=== PATIENT | male | born 1985 | race Caucasian/White ===

== ENCOUNTER 2017-03-04 17:00 | Inpatient (IN) | payer MEDICAID ==
[2017-03-04] MEDS ORDERED: NS 1,000 ML IV ONE ×4 (17:15→18:48)
[2017-03-04] MEDS ORDERED: LORazepam 2 MG/ML INJ IVP ONE (17:15)
--- NOTE | 2017-03-04 17:19 | EDPHY ---
H & P Smoking Status: Light smoker <Wilma Cisneros - Last Filed: 03/04/17 21:38> <Andres Castro - Last Filed: 03/07/17 21:08> Time Seen by Provider: 03/04/17 17:12 HPI/ROS: CHIEF COMPLAINT: Seizure, snorted OxyContin HISTORY OF PRESENT ILLNESS: 31-year-old male presents to the emergency department by ambulance after having first-time witnessed seizure by his girlfriend. The patient admits to snorting oxycodone tablets today. He apparently has been doing this weekly for the last 2 years. His girlfriend witnessed tonic-clonic seizure. He was apparently postictal. He did not bite his tongue. He was not incontinent of urine. Unknown trauma. Currently the patient has a mild headache and is complaining of neck pain. He denies chest pain or difficulty breathing. Denies abdominal pain. Denies injury to upper or lower extremities. REVIEW OF SYSTEMS: Constitutional: No fever, no chills. Eyes: No double or blurry vision. ENT: No sore throat. Respiratory: No cough, no shortness of breath. Cardiac: No chest pain. Gastrointestinal: No abdominal pain, vomiting or diarrhea. Genitourinary: No dysuria. Musculoskeletal: Neck pain as above. No back pain. Skin: No rashes. Neurological: headache. (Wilma Cisneros) Past Medical/Surgical History: substance abuse (Wilma Cisneros) Social History: Single (Wilma Cisneros) Physical Exam: General Appearance: Alert, no distress. 94% on room air. No physical signs of trauma to his head. He is mentating normally and answering questions appropriately. Eyes: Pupils equal and round. Extraocular motions are all intact. ENT: Mouth: Mucous membranes moist. Blue residue noted in the left nostril. No dental injury or malocclusion. No tongue laceration or abrasion. Respiratory: No wheezing, rhonchi, or rales, lungs are clear to auscultation. Cardiovascular: Regular rate and rhythm. Gastrointestinal: Abdomen is soft and nontender, no masses, no rebound or guarding, bowel sounds normal. Neurological: Alert and oriented x 3, cranial nerves II through XII grossly intact Skin: Warm and dry, no rashes. Musculoskeletal: Nontender to palpate along the cervical, thoracic or lumbar spine. Neck is supple. Extremities: Full range of motion and no peripheral edema. Psychiatric: Patient is oriented X 3, there is no agitation. (Wilma Cisneros) Constitutional: Initial Vital Signs O2 Sat (%) 94 03/04/17 17:15 O2 Delivery Mode Nasal Cannula O2 (L/minute) 4 Allergies/Adverse Reactions: No Known Allergies Allergy (Verified 03/04/17 17:12) Home Medications: Medication Instructions Recorded Lisinopril [Zestril 2.5 mg (*)] 2.5 mg PO DAILY #30 tab 03/06/17 Medical Decision Making - Diagnostics Imaging: Discussed imaging studies w/ manager call center Radiologist <Wilma Cisneros - Last Filed: 03/04/17 21:38> - Diagnostics Imaging: I viewed and interpreted images myself <Andres Castro - Last Filed: 03/07/17 21:08> - Diagnostics Imaging Results: Imaging Impressions Cervical Spine CT 03/04/17 17:15 Impression: Kyphosis; no fracture. I telephoned results to Wilma Cisneros at [address] 03/04/17 17:15 Impression: Normal. I telephoned results to Wilma Cisneros at 1745 hours. Chest X-Ray 03/04/17 17:49 Impression: Normal. Chest x-ray was reviewed by myself and revealed no acute pulmonary disease. Specifically no evidence of aspiration or pneumomediastinum. (Wilma Cisneros) ED Course/Re-evaluation: 31-year-old male presents to the emergency department by ambulance after having a witnessed seizure. The patient was found to be hypotensive with initial blood pressure 70s over 50s. The patient was tachycardic with a heart rate of 110. He had an IV placed by EMS. The patient received a total of 3 L of IV normal saline. I spoke with Dr. Andres Castro regarding the patient's critical hypotension. Patient had no complaints of chest pain or difficulty breathing. He was complaining of some mild neck pain after his seizure. The patient was placed in a cervical collar and CT imaging of the head and cervical spine was ordered which was normal. Laboratory studies reveal elevated troponin of 0.221. Potassium was 5.4. His initial creatinine was 1.6 before IV fluids were infused. Elevated LFTs. Case was initially discussed with Dr. Sebastian Wells who is on-call for Cardiology. He agreed with stat echocardiogram. Repeat troponin reveals 0.296. EKG was unchanged. Patient had abnormal echocardiogram. He will be taken to the clinical lab assistant by Dr. Sebastian Machuca. Dr. Sebastian Machuca will see the patient in the emergency department. Critical care by Dr. Andres Castro. (Wilma Cisneros) 1836: I have seen evaluated this patient. Patient is hypotensive however map 50. Patient getting his 3rd L fluid. On his EKG his initial EKG showed an early Re pole pattern. There is ST elevation seen in lead to 3 AVF that looks like a Re-pole. We did repeat this EKG. EKG interpretation by me on record in [facility] system. Impression time of EKG 1834, sinus tachycardia rate of 100, again ST elevated noted early Re pole pattern to 3 AVF 1837: The patient at this time does not have any chest pain and does not have any pain in his chest or shortness of breath. He did have a seizure main complaint is headache and neck pain. Given his abnormal EKG and elevated troponin noted I will touch base with Cardiology again. I have ordered a stat echo. 1841: Spoke with Dr. Wells does not feel this is acute ST elevation. The patient has no chest pain or shortness of breath. He would like a stat echo. He will be glad to see the patient. 1850: I did perform a bedside ultrasound of this patient IV specifically looked at his cardiac window his heart motion appears normal. I do not appreciate any significant wall motion abnormality. It is not hyperdynamic. Formal echo pending. No pericardial effusion. No evidence of free fluid in the abdomen. Patient on his 4th L fluid. He did urinate 600 cc of brown concentrated urine. Clinically on exam patient appears volume depleted. 1914: EKGs txt to Dr. Wells, EKG is reviewed. He does feel this is early Repole. Stat echo pending. 1934: Patient's blood pressure currently 80/60. Map of 60. No chest pain. Stat echo is being performed at this time. 1999: Reported to me that the echocardiogram does show multiple wall motion abnormalities. I spoke with Dr. Machuca with Cardiology at this time. The review the echo. Call me back 2017: EKG interpretation by me on record in [facility] system. Impression this is a right-sided EKG again this patient is not having chest pain, this does show ST eleva tion to 3 AVF, abnormal T-wave abnormality in V1 V2 V3 with ST depression. 2024: Spoke with Dr. Machuca: Will plan to Cath Right and Left heart cath. Plan is to proceed with cardiac catheterization. Patient be admitted ICU. Dr. Machuca is requesting hospitalist admit due to multiple other issues including blood work abnormalities and drug overdose. But will proceed with catheterization of right and left heart to help understand why the right ventricle is damaged. This is most likely cause of hypotension given that the right ventricle is down. May need to proceed with CT angiogram chest with contrast rule out a pulmonary artery process after catheterization. I have updated the hospitalist service Dr. Machuca is on his way to the hospital to proceed with cardiac catheterization. Critical Care: Total Critical Care Time Spent Managing this Patient: 65 Minutes. This time was spent Exclusively with this patient. This Care was exclusive of procedures. The Organ System/life at risk was hypotension, ST elevation on EKG, drug overdose, acute kidney injury, hypokalemia. This Patient was in Critical Condition because hypotension, abnormal echo. Positive troponin. 2038: Dr. Machuca cardiology is at bedside. Evaluating patient plan for patient go to clinical lab assistant. I have cleared his cervical spine collar. (Andres Castro) Differential Diagnosis: Seizure including but not limited to electrolyte abnormality, alcohol withdrawal , medication noncompliance, head injury, and breakthrough seizure. (Wilma Cisneros) - Data Points Laboratory Results: Laboratory Results 03/04/17 17:30 03/04/17 18:25 Medications Given: Discontinued Medications Enoxaparin Sodium (Lovenox) 40 mg SC DAILY [facility] Stop: 09/01/17 08:59 Last Admin: 03/06/17 08:13 Dose: 40 mg Sodium Chloride (Ns) 1,000 mls @ 0 mls/hr IV ONCE ONE PRN Reason: Wide Open Stop: 03/04/17 17:16 Last Admin: 03/04/17 17:05 Dose: 1,000 mls Sodium Chloride (Ns) 1,000 mls @ 3,000 mls/hr IV ONCE ONE Stop: 03/04/17 17:59 Last Admin: 03/04/17 17:25 Dose: 1,000 mls Sodium Chloride (Ns) 1,000 mls @ 0 mls/hr IV ONCE ONE PRN Reason: Wide Open Stop: 03/04/17 18:31 Last Admin: 03/04/17 18:00 Dose: 1,000 mls Sodium Chloride (Ns) 1,000 mls @ 0 mls/hr IV ONCE ONE PRN Reason: Wide Open Stop: 03/04/17 18:49 Last Admin: 03/04/17 18:40 Dose: 1,000 mls Norepinephrine/Sodium Chloride (Norepinephrine 8 Mcg/Ml (Premix)) 500 mls @ 0 mls/hr IV CONT CHETNA; Per Protocol PRN Reason: Protocol Stop: 08/31/17 22:59 Last Admin: 03/04/17 23:58 Dose: 500 mls Pantoprazole Sodium 40 mg/ (Sodium Chloride) 100 mls @ 200 mls/hr IV DAILY CHETNA Stop: 08/31/17 23:14 Last Admin: 03/05/17 08:05 Dose: 100 mls Lisinopril (Zestril) 2.5 mg PO DAILY CHETNA Stop: 09/02/17 08:59 Last Admin: 03/06/17 08:14 Dose: 2.5 mg Lorazepam (Ativan Injection) 1 mg IVP EDNOW ONE Stop: 03/04/17 17:16 Last Admin: 03/04/17 18:36 Dose: Not Given Lorazepam (Ativan Injection) 0.5 - 1 mg IVP Q4HRS PRN PRN Reason: Anxiety, Unable to Take PO Stop: 08/31/17 23:10 Last Admin: 03/04/17 23:56 Dose: 1 mg Morphine Sulfate (Morphine) 2 mg IVP Q4HRS PRN PRN Reason: Pain, Severe Unable to Take PO Stop: 03/14/17 23:09 Last Admin: 03/05/17 12:26 Dose: 2 mg Nicotine (Nicoderm Cq) 14 mg TD DAILY CHETNA Stop: 08/31/17 23:14 Last Admin: 03/06/17 08:12 Dose: 14 mg Ondansetron HCl (Zofran) 4 mg IVP Q4HRS PRN PRN Reason: Nausea/Vomiting, Can't Take PO Stop: 08/31/17 23:09 Last Admin: 03/04/17 23:15 Dose: 4 mg Departure <Wilma Cisneros - Last Filed: 03/04/17 21:38> <Andres Castro - Last Filed: 03/07/17 21:08> - Departure Disposition: To OP Cath/Surgery Clinical Impression: Acute kidney injury, Seizure, Shock Drug overdose Qualifiers: Encounter type: initial encounter Injury intent: undetermined intent Qualified Code(s): T50.904A - Poisoning by unspecified drugs, medicaments and biological substances, undetermined, initial encounter Hypotension Qualifiers: Hypotension type: unspecified hypotension type Qualified Code(s): I95.9 - Hypotension, unspecified Condition: Critical
--- NOTE | 2017-03-04 17:39 | CPEKG ---
Heart Rate: 97 RR Interval: 619 P-R Interval: 132 QRSD Interval: 94 QT Interval: 368 QTC Interval: 468 P [place]: 70 QRS [place]: 90 T Wave [place]: 63 EKG Severity - OTHERWISE NORMAL ECG - EKG Impression: SINUS RHYTHM EKG Impression: BORDERLINE RIGHT AXIS DEVIATION EKG Impression: ST ELEV, PROBABLE NORMAL EARLY REPOL PATTERN Electronically Signed By: Andres Castro 04-Mar-2017 21:34:07
[2017-03-04 17:50] LABS: % IMMATURE GRANULYOCYTES 0.5 % (0.0-1.1); ABSOLUTE IMMATURE GRANULOCYTES 0.13 10^3/uL (0.00-0.10); ADD DIFF? NO; ADD MORPH? NO; ADD SCAN? NO; ATYPICAL LYMPHOCYTE FLAG 0 (0-99); FRAGMENT RBC FLAG 0 (0-99); HEMATOCRIT 53.8 % (40.0-51.0); HEMOGLOBIN 17.4 g/dL (13.7-17.5); LEFT SHIFT FLG 40 (0-99); LIPEMIA HEMOLYSIS FLAG 80 (0-99); MEAN CELL HEMOGLOBIN CONCENTR. 32.3 g/dL (32.4-36.7); MEAN CELL VOLUME 99.1 fL (81.5-99.8); MEAN PLATELET VOLUME 9.4 fL (8.7-11.7); PLATELET CLUMPS FLAG 0 (0-99); PLATELET COUNT 285 10^3/uL (150-400); RED BLOOD CELL COUNT 5.43 10^6/uL (4.40-6.38); RED CELL DISTRIBUTION WIDTH 12.2 % (11.5-15.2)
[2017-03-04 18:04] LABS: ALANINE AMINOTRANSFERASE 505 IU/L (21-72); ALBUMIN 5.3 g/dL (3.5-5.0); ALKALINE PHOSPHATASE 81 IU/L (38-126); ANION GAP 26 mEq/L (8-16); ASPARTATE AMINOTRANSFERASE 724 IU/L (17-59); BILIRUBIN,TOTAL 1.1 mg/dL (0.1-1.4); BILIRUBIN-CONJUGATED 0.7 mg/dL (0.0-0.5); BILIRUBIN-UNCONJUGATED 0.4 mg/dL (0.0-1.1); CALCIUM 9.4 mg/dL (8.5-10.4); CARBON DIOXIDE 17 mEq/l (22-31); CHLORIDE 97 mEq/L (97-110); CREATININE 1.6 mg/dL (0.7-1.3); ETHANOL SERUM < 10 mg/dL (0-10); GLOMERULAR FILTRATION RATE 51; GLUCOSE 174 mg/dL (70-100); POTASSIUM 5.4 mEq/L (3.5-5.2); SALICYLATE < 1.0 mg/dL (2.0-20.0); SODIUM 140 mEq/L (134-144); TOTAL PROTEIN 8.2 g/dL (6.3-8.2)
[2017-03-04 18:15] LABS: TROPONIN I 0.221 ng/mL (0-0.034)
--- NOTE | 2017-03-04 18:37 | CPEKG ---
Heart Rate: 100 RR Interval: 600 P-R Interval: 128 QRSD Interval: 92 QT Interval: 360 QTC Interval: 465 P [place]: 70 QRS [place]: 93 T Wave [place]: 70 EKG Severity - OTHERWISE NORMAL ECG - EKG Impression: SINUS TACHYCARDIA EKG Impression: BORDERLINE RIGHT AXIS DEVIATION EKG Impression: ST ELEV, PROBABLE NORMAL EARLY REPOL PATTERN Electronically Signed By: Andres Castro 04-Mar-2017 21:34:07
[2017-03-04 18:58] LABS: ANION GAP 6 mEq/L (8-16); CALCIUM 7.2 mg/dL (8.5-10.4); CARBON DIOXIDE 23 mEq/l (22-31); CHLORIDE 107 mEq/L (97-110); CREATININE 1.1 mg/dL (0.7-1.3); GLOMERULAR FILTRATION RATE > 60; GLUCOSE 104 mg/dL (70-100); POTASSIUM 5.4 mEq/L (3.5-5.2); SODIUM 136 mEq/L (134-144)
[2017-03-04 19:08] LABS: TROPONIN I 0.296 ng/mL (0-0.034)
[2017-03-04 19:31] LABS: CK-MB INTERPRETATION NEGATIVE (NEGATIVE)
[2017-03-04 19:54] LABS: CREATINE KINASE-MB FRACTION 4.45 ng/mL (0-3.19)
[2017-03-04] MEDS ORDERED: LIDOCAINE 1% 30 ML SDV ONE (21:06)
[2017-03-04] MEDS ORDERED: IOPAMIDOL (ISOVUE-370) 150 ML BTL IV ONE (21:06)
[2017-03-04] MEDS ORDERED: fentaNYL 100 MCG/2 ML INJ ONE (21:08)
[2017-03-04] MEDS ORDERED: MIDAZOLAM 2 MG/2 ML VIAL ONE (21:09)
[2017-03-04] MEDS ORDERED: DOPamine/DEXTROSE/250 ML BAG IV ONE (21:45)
--- NOTE | 2017-03-04 22:59 | CPEKG ---
Heart Rate: 95 RR Interval: 632 P-R Interval: 132 QRSD Interval: 82 QT Interval: 336 QTC Interval: 423 P [place]: 67 QRS [place]: 93 T Wave [place]: 66 EKG Severity - ABNORMAL ECG - EKG Impression: SINUS RHYTHM EKG Impression: BORDERLINE RIGHT AXIS DEVIATION EKG Impression: NONSPECIFIC T ABNORMALITIES, ANT-LAT LEADS EKG Impression: ST ELEVATION SUGGESTS PERICARDITIS Electronically Signed By: Sue Mckeon 05-Mar-2017 11:52:43
[2017-03-04] MEDS ORDERED: NOREPINEPHRINE/NS 500 ML IV SCH (23:00)
[2017-03-04] MEDS ORDERED: NOREPINEPHRINE BITARTRATE 4 MG in D5W 500 ML IV SCH (23:00)
[2017-03-04] MEDS ORDERED: ONDANSETRON 4 MG/2 ML VIAL ONE (23:02)
[2017-03-04] MEDS ORDERED: IOPAMIDOL (ISOVUE 370) 100 ML BTL IV ONE (23:09)
[2017-03-04] MEDS ORDERED: ONDANSETRON 4 MG/2 ML VIAL IVP PRN (23:10)
[2017-03-04] MEDS ORDERED: LORazepam 2 MG/ML INJ IVP PRN (23:11)
--- NOTE | 2017-03-04 23:41 | GCON ---
[f rep st] CONSULTATION DATE OF CONSULTATION: 03/04/2017 CHIEF COMPLAINT: We have been asked by Dr. Castro to evaluate this patient with hypotension and el evated troponin and an abnormal echocardiogram with an EF of approximately 35% and segmental wall mo tion abnormalities. HISTORY OF PRESENT ILLNESS: The patient is a 31-year-old gentleman with no significant past medical history, who was admitted to the emergency department on 03/04/2017 with seizure-like activity. Brandon perez was in his usual state of health until the day of admission when he was snorting OxyContin wit h his girlfriend. After snorting the OxyContin, he became unconscious and had tonic-colonic seizure -like activity. EMS was activated, and patient was brought to the emergency department for further evaluation. Patient did not bite his tongue. He was not incontinent of stool or urine. In the located within [facility] department, he had an EKG performed, which demonstrated sinus rhythm and early repolarization abnormality. Initial lab work was notable for an elevated troponin, an elevated white blood cell c ount of 24.92, renal insufficiency with a creatinine 1.6, and elevated LFTs with an AST of 724 and a n ALT of 505. Initial toxicology screen was notable for marijuana but was otherwise unremarkable. Given patient was hypotensive, he was treated with intravenous fluid, and an echocardiogram was orde red. The echocardiogram demonstrated a dilated RV with reduced RV function. His LV was normal in s ize with reduced left ventricular systolic function. Estimated ejection fraction was 35%. The sept um was dyskinetic. The posterior wall appeared to be hypokinetic. Patient denies a previous histor y of coronary artery disease. He does report snorting oxycodone. He denies other illicit drug use other than marijuana. Patient denies symptoms of chest pain, palpitations, orthopnea, and PND. Jeane romo does report some neck discomfort after his seizure-like activity. PAST MEDICAL HISTORY: None. MEDICATIONS: None. ALLERGIES: No known drug allergies. SOCIAL HISTORY: Patient does report smoking marijuana and snorting oxycodone. FAMILY HISTORY: Noncontributory. REVIEW OF SYSTEMS: A 10-point review of systems is negative except as noted in HPI. PHYSICAL EXAMINATION: GENERAL: Patient is resting in bed. He does not appear to be in acute distr ess. VITAL SIGNS: Temperature is afebrile. Pulse is 94, blood pressure 82/61, respiratory rate 13 , SaO2 95% on 2 L nasal cannula. HEENT: Normocephalic, atraumatic. Extraocular muscles intact. N DORINDA: Positive JVD. No bruits. LUNGS: Clear to auscultation. CARDIOVASCULAR: Regular rate and r hythm. S1, S2. No murmurs, rubs, or gallops appreciated. ABDOMEN: Soft. Nontender. Normoactive bowel sounds. EXTREMITIES: No clubbing, cyanosis, or edema. NEURO: Patient is awake, alert, and oriented x3. SKIN: No evidence of rashes. LABORATORY DATA: White blood cell count 24.92, hemoglobin 17.4, hematocrit 53.8, platelet count 285 . Sodium 136, potassium 5.4, chloride 107, CO2 of 23, BUN 17, creatinine 1.1. AST is 724, ALT is 5 05. Initial troponin was 0.221. Second troponin 0.296. CPK is elevated at 258. EKG: Demonstrate s sinus rhythm, vertical axis, normal intervals. J-point elevation in the inferior and lateral lead s consistent with a repolarization abnormality. Echocardiogram: Preliminary report demonstrates re duced left ventricular systolic function with estimated ejection fraction 35%. Septal dyskinesis. Posterior hypokinesis. The right ventricle is dilated and hypokinetic. ASSESSMENT AND PLAN: The patient is a 31-year-old gentleman with: 1. Hypotension. Patient presents with hypotension that is minimally responsive to volume resuscita tion. He has an elevated white blood cell count raising concern for septic syndrome. He also has r educed left ventricular systolic function raising concern for cardiogenic shock. In addition, patie nt also has a dilated and hypokinetic right ventricle raising concern for pulmonary embolism. Toxic reaction is also possible. Reviewed risks and benefits of right heart catheterization to help diag nose and treat his hypotension. Will arrange to have this performed. 2. Cardiomyopathy. Patient presents with a new diagnosis of cardiomyopathy. He does admit to subs tance use/abuse, which certainly could be contributing to his cardiomyopathy. He denies cocaine use ; however, he does have multiple segmental wall motion abnormalities. Reviewed risks and benefits o f left heart catheterization to evaluate coronary anatomy and aid in his treatment. Will arrange to have this performed. /[id number]/MODL
--- NOTE | 2017-03-04 23:43 | PDGENHP ---
History and Physical - Chief Complaint possible seizure - History of Present Illness Patient is a 31 year old male with history of depression, active tobacco use who presents to the ED after seizure-like activity at home. Patient reports he had been snorting oxycodone with his girlfriend/roommate, denies any other drug mixed. His girlfriend then reports he became unresponsive and had a generalized tonic-clonic like movements of all his extremities, appearing consistent with a seizure. Once movements stopped, patient was lethargic and confused, so girlfriend called EMS and he was transported to the ED for further evaluation. On arrival to the ED, patient was afebrile, tachycardic and hypotensive. On exam , he was lethargic but answering questions appropriately, appearing post-ictal. Labs revealed leukocytosis, elevated troponin at 0.29, transaminitis and elevated creatinine. CXR and CT head were unremarkable. EKG showed possible ST elevations, so cardiology was consulted and a stat TTE was ordered. TTE revealed focal wall motion abnormalities, RV hypokinesis. Patient remained hypotensive despite 4L IVF resuscitation, so pressor support was initiated and he was then taken for cath. Cardiology performed R and L heart cath to further evaluate troponin elevation and TTE findings. Cardiac cath showed clean coronaries, global RV hypokinesis and elevated pcwp (15). Given these findings, CT angio chest was then obtained to assess for pulmonary embolism. CT angio was negative for PE, showed minimal fluid overload. On my evaluation, patient does not recall most events of the day. He states he was in his usual state of health prior to snorting the oxycodone, which is something he does fairly frequently (1x/week). Denies any recent illness, fever , chills, cough, congestion, chest pain, abdominal pain or recent long travel. He was nauseous and vomiting on my assessment and complaining of a headache and neck pain. He does report a history of depression, for which he was prescibed Wellbutrin, which was abruptly discontinued about 3 months ago. He denies self harm attempt today and also denies any previous history of seizure disorder. History Information - Allergies/Home Medication List Allergies/Adverse Reactions: No Known Allergies Allergy (Verified 03/04/17 17:12) Home Medications: NK [No Known Home Meds] 03/04/17 [Last Taken Unknown] I have personally reviewed and updated: family history, medical history, social history, surgical history - Past Medical History Additional medical history: h/o depression - Surgical History Additional surgical history: hand surgery - Family History Positive for: non-pertinent - Social History Smoking Status: Current every day smoker (1/2 PPD) Alcohol Use: Occasionally (1-2 beers daily) Drug Use: Marijuana, Other (oxycodone use) Additional social history: Patient lives with a roommate. Review of Systems ROS: 10pt was reviewed & negative except for what was stated in HPI & below Physical Exam Temp Pulse Resp BP Pulse Ox 37.1 C 96 14 83/65 L 95 03/04/17 17:23 03/04/17 21:18 03/04/17 21:18 03/04/17 21:18 03/04/17 21:18 O2 (L/minute) 2 Constitutional: no apparent distress, appears nourished, not in pain Eyes: PERRL, anicteric sclera, EOMI Ears, Nose, Mouth, Throat: moist mucous membranes, hearing normal, ears appear normal, no oral mucosal ulcers Cardiovascular: regular rate and rhythym, no murmur, rub, or gallop, pulses symmetric bilaterally, No JVD, No edema Peripheral Pulses: 2+: dorsalis-pedis (R), dorsalis-pedis (L) Respiratory: no respiratory distress, no rales or rhonchi, clear to auscultation Gastrointestinal: normoactive bowel sounds, soft, non-tender abdomen, no palpable masses, No tenderness, No guarding, No rebound Genitourinary: no bladder fullness, no bladder tenderness Skin: warm, normal color, no rashes or abrasions, no fluctuance, no induration, No mottled Musculoskeletal: full muscle strength, no muscle tenderness, normal joint ROM, no joint effusions Neurologic: AAOx3, sensation intact bilaterally, CN II-XII Intact, No weakness, No numbness, No facial droop Psychiatric: interacting appropriately, not anxious, not encephalopathic, thought process linear Lab Data & Imaging Review 03/05/17 05:15 03/05/17 05:15 WBC 24.92 10^3/uL (3.80-9.50) H 03/04/17 17:30 RBC 5.43 10^6/uL (4.40-6.38) 03/04/17 17:30 Hgb 17.4 g/dL (13.7-17.5) 03/04/17 17:30 Hct 53.8 % (40.0-51.0) H 03/04/17 17:30 MCV 99.1 fL (81.5-99.8) 03/04/17 17:30 MCH 32.0 pg (27.9-34.1) 03/04/17 17:30 MCHC 32.3 g/dL (32.4-36.7) L 03/04/17 17:30 RDW 12.2 % (11.5-15.2) 03/04/17 17:30 Plt Count 285 10^3/uL (150-400) 03/04/17 17:30 MPV 9.4 fL (8.7-11.7) 03/04/17 17:30 Neut % (Auto) 89.7 % (39.3-74.2) H 03/04/17 17:30 Lymph % (Auto) 3.8 % (15.0-45.0) L 03/04/17 17:30 Greene % (Auto) 5.8 % (4.5-13.0) 03/04/17 17:30 Eos % (Auto) 0.0 % (0.6-7.6) L 03/04/17 17:30 Baso % (Auto) 0.2 % (0.3-1.7) L 03/04/17 17:30 Nucleat RBC Rel Count 0.0 % (0.0-0.2) 03/04/17 17:30 Absolute Neuts (auto) 22.35 10^3/uL (1.70-6.50) H 03/04/17 17:30 Absolute Lymphs (auto) 0.95 10^3/uL (1.00-3.00) L 03/04/17 17:30 Absolute Monos (auto) 1.44 10^3/uL (0.30-0.80) H 03/04/17 17:30 Absolute Eos (auto) 0.00 10^3/uL (0.03-0.40) L 03/04/17 17:30 Absolute Basos (auto) 0.05 10^3/uL (0.02-0.10) 03/04/17 17:30 Absolute Nucleated RBC 0.00 10^3/uL (0-0.01) 03/04/17 17:30 Immature Gran % 0.5 % (0.0-1.1) 03/04/17 17:30 Immature Gran # 0.13 10^3/uL (0.00-0.10) H 03/04/17 17:30 Sodium 136 mEq/L (134-144) 03/04/17 18:25 Potassium 5.4 mEq/L (3.5-5.2) H 03/04/17 18:25 Chloride 107 mEq/L (97-110) D 03/04/17 18:25 Carbon Dioxide 23 mEq/l (22-31) D 03/04/17 18:25 Anion Gap 6 mEq/L (8-16) L 03/04/17 18:25 BUN 17 mg/dL (7-23) 03/04/17 18:25 Creatinine 1.1 mg/dL (0.7-1.3) 03/04/17 18:25 Estimated GFR > 60 03/04/17 18:25 Glucose 104 mg/dL (70-100) H 03/04/17 18:25 Calcium 7.2 mg/dL (8.5-10.4) L D 03/04/17 18:25 Total Bilirubin 1.1 mg/dL (0.1-1.4) 03/04/17 17:02 Conjugated Bilirubin 0.7 mg/dL (0.0-0.5) H 03/04/17 17:02 Unconjugated Bilirubin 0.4 mg/dL (0.0-1.1) 03/04/17 17:02 AST 724 IU/L (17-59) H 03/04/17 17:02 ALT 505 IU/L (21-72) H 03/04/17 17:02 Alkaline Phosphatase 81 IU/L (38-126) 03/04/17 17:02 Creatine Kinase 258 IU/L (0-224) H 03/04/17 17:00 CK-MB (CK-2) Fraction 4.45 ng/mL (0-3.19) H 03/04/17 17:00 CK-MB (CK-2) % 1.7 % (0.0-4.0) 03/04/17 17:00 Creatine Kinase Interp NEGATIVE (NEGATIVE) 03/04/17 17:00 Troponin I 0.296 ng/mL (0-0.034) H 03/04/17 18:25 Total Protein 8.2 g/dL (6.3-8.2) 03/04/17 17:02 Albumin 5.3 g/dL (3.5-5.0) H 03/04/17 17:02 Salicylates < 1.0 mg/dL (2.0-20.0) L 03/04/17 17:02 Urine Opiates Screen NEGATIVE (NEGATIVE) 03/04/17 18:44 Acetaminophen < 10 mcg/mL (10.0-30.0) L 03/04/17 17:02 Urine Barbiturates NEGATIVE (NEGATIVE) 03/04/17 18:44 Ur Phencyclidine Scrn NEGATIVE (NEGATIVE) 03/04/17 18:44 Ur Amphetamine Screen NEGATIVE (NEGATIVE) 03/04/17 18:44 U Benzodiazepines Scrn NEGATIVE (NEGATIVE) 03/04/17 18:44 Urine Cocaine Screen NEGATIVE (NEGATIVE) 03/04/17 18:44 U Marijuana (THC) Screen NON-NEGATIVE (NEGATIVE) H 03/04/17 18:44 Ethyl Alcohol < 10 mg/dL (0-10) 03/04/17 17:02 Visualized and Interpreted Chest x-ray results: Yes Chest X-Ray results: no infiltrate Visualized and Interpreted imaging results: Yes Interpretation: CT head: no acute abnormalities. CT angio chest: no evidence of pulmonary embolism; minimal pleural effusions Visualized and Interpreted EKG results: Yes EKG additional interpertation: sinus tachycardia with ST elevations defusely, normal HI Assessment & Plan Assessment: Patient is a 31 year old male with no significant pmh who presents to the ED after snorting drugs (reportedly oxycodone only) resulting in an apparent seizure. ED evaluation reveals hypotension, elevated troponin, abnormal EKG and TTE, as well as leukocytosis, transaminitis, judah. Cardiology has performed L and R heart cath, which reveal normal coronaries, RV hypokinesis and evidence of cardiogenic shock. CT angio was also negative for acute pulmonary embolism. Plan: # shock Patient presented hypotensive and remained so after 4L of IV fluid resuscitation. RHC data (low CI, high pcwp) suggests cardiogenic etiology. However, given leukocytosis, will also rule out contributing sepsis/infection. BP has stabilized with minimal pressor support, will continue this to goal MAP > 65, UOP>0.5 cc/kg/hr. # elevated troponin, abnormal EKG, TTE Etiology may be related to drug toxicity (however, patient denies any cocaine/ amphetamine use) vs vasospasm vs viral priscilla/perimyocarditis. Repeat EKGs do show more diffuse ST elevations, appearing consistent with pericarditis, especially given clean cath. However, patient continues to deny any chest pain, dyspnea or pleurisy. Will hold off on NSAID therapy tonight given double contrast load and JUDAH on presenting labs. - cont to trend troponins - monitor serial EKGs - f/u cardiology recommendations - check viral panel for ? myocarditis # encephalopathy/? seizure Per report, patient had a generalized tonic-clonic seizure prior to arrival in the ED. On arrival to ED, patient was lethargic, appearing consistent with a post-ictal state. Etiology of seizure is not clear at this time, may be related to acute drug toxicity. Has history of wellbutrin use, however, states it last taken > 3 months ago. Also denies heavy alcohol use, reports 1-2 beers/daily, denies any history of etoh withdrawal symptoms. CT head is negative for acute pathology and exam is nonfocal. He is complaining of headache, can consider LP to rule out meningitis/encephalitis if signs of infection develop (persistent leukocytosis, fever, neck stiffness). Will also consult neurology. # leukocytosis Likely reactive, related to possible acute seizure. No obvious source of bacterial infection, given negative cxr, denies infectious symptoms. Will check UA, lactic acid, above listed viral panel and continue to trend. No indication to start antibiotics at this time. # transaminitis Etiology of this is not clear, may be related to hypotension (early shock liver ) vs chronic alcohol use vs drug toxicity. Patient denies any IVDA, acetaminophen level is negative, lipase wnl. Will check acute hepatitis panel, abdominal US and trend. # judah Cr initially 1.6, improved significantly with IVF hydration. Suspect pre-renal etiology as patient apparently appeared dry on presentation. He is now s/p 4L IVF. Will hold additional fluids given cardiomyopathy and continue to monitor BMP, electrolytes. # active tobacco use Advised on cessation, offered nicotine replacement therapy while inpatient. # history of depression Patient denies any suicidal/homicidal ideations today. He also denies that oxycodone overdose was intentional. He was previously on wellbutrin and states this was discontinued about 3 months ago. He is not currently on any antidepressants and states his mood is stable. # dispo: admit to ICU for likely > 2 MN stay given multiple active comorbidities described above # gen: regular diet DVT ppx: lovenox Full code
--- NOTE | 2017-03-04 23:50 | CPEKG ---
Heart Rate: 95 RR Interval: 632 P-R Interval: 132 QRSD Interval: 80 QT Interval: 348 QTC Interval: 438 P Soso: 87 QRS Soso: 98 T Wave Soso: 80 EKG Severity - ABNORMAL ECG - EKG Impression: SINUS RHYTHM EKG Impression: BORDERLINE RIGHT AXIS DEVIATION EKG Impression: ST ELEVATION SUGGESTS PERICARDITIS Electronically Signed By: Sue Mckeon 05-Mar-2017 11:52:48
[2017-03-05] MEDS: PANTOPRAZOLE SODIUM 40 MG in NS 100 ML IV SCH ×2 (00:11→08:05)
[2017-03-05] MEDS: NICOTINE 14 MG/24 HR PATCH TD SCH ×2 (00:15→08:05)
--- NOTE | 2017-03-05 00:21 | CPIP ---
[f rep st] INVASIVE CARDIAC PROCEDURE DATE OF PROCEDURE: 03/04/2017 PROCEDURE: 1. Coronary angiography. 2. Left ventricular end-diastolic pressure. 3. Right heart catheterization. INDICATION: 1. Elevated troponin. 2. Cardiomyopathy. 3. Hypotension. ACCESS: Patient was prepped and draped in sterile fashion. 1% lidocaine was used to anesthetize th e right inguinal region. A 6-[place] introducer sheath was placed selectively into the right common femoral artery via modified Seldinger technique. A 7-[place] introducer sheath was placed selectivel y into the right common femoral vein via modified Seldinger technique. CORONARY ANGIOGRAPHY: A 6-[place] JL4 was advanced to the left main coronary artery and images obtai manolo. The left main coronary artery was short and quickly bifurcated into an LAD and circumflex albaro nary arteries. The left main coronary artery appeared normal. The left anterior descending coronar y artery gave rise to 2 diagonal branches. The left anterior descending coronary artery and its com plement of diagonal branches appeared normal. The circumflex coronary artery gave rise to 1 OM bran ch. The OM branch was a large branching vessel. The circumflex coronary artery and its OM branch a ppeared normal. A 6-[place] JR4 was advanced to the right coronary artery, did not engage the right coronary artery well. It was exchanged for a 6-[place] no-torque right catheter. This engaged the r ight coronary artery well. The right coronary artery appeared normal. Left ventricular end-diastolic pressure. A 6-[place] pigtail catheter was advanced in the left ventr icle and pressure obtained. Left ventricular end-diastolic pressure was 18 mmHg. Right heart catheterization: Right heart catheter was advanced in the right atrium and pressure obt ained, the right atrial pressure was 17 mmHg. Catheter was then advanced in the right ventricle and pressure obtained. The right ventricular pressure was 30/11 mmHg. The catheter was then advanced in the pulmonary artery position and pressure obtained; the pulmonary artery pressure was 27/19 mmHg . Catheter was then advanced in the wedge position and pressure obtained. The pulmonary capillary wedge pressure was 16 mmHg. The cardiac output was 3.79, the cardiac index was 1.96. SVR was 970. COMPLICATIONS: None. CONCLUSIONS: 1. Normal coronary arteries. 2. Mildly reduced cardiac output with normal SVR. 3. Concern for right ventricular dysfunction resulting in low cardiac output. Consider CT pulmonar y angiogram. /[id number]/MODL
[2017-03-05 03:11] LABS: COLOR YELLOW; LEUKOCYTE ESTERASE,URINE NEGATIVE (NEGATIVE); NITRITE,URINE NEGATIVE (NEGATIVE)
[2017-03-05 03:48] LABS: PHENCYCLIDINE URINE BCH < 6 ng/ml (NEGATIVE); PHENCYCLIDINE URINE BCH NEGATIVE (NEGATIVE)
[2017-03-05 03:59] LABS: TETRAHYDROCANNABINOL URINE > 800 ng/mL (NEGATIVE)
[2017-03-05 05:31] LABS: % IMMATURE GRANULYOCYTES 0.3 % (0.0-1.1); ABSOLUTE IMMATURE GRANULOCYTES 0.04 10^3/uL (0.00-0.10); ADD DIFF? NO; ADD MORPH? NO; ADD SCAN? NO; ATYPICAL LYMPHOCYTE FLAG 10 (0-99); FRAGMENT RBC FLAG 0 (0-99); HEMATOCRIT 39.7 % (40.0-51.0); HEMOGLOBIN 13.4 g/dL (13.7-17.5); LEFT SHIFT FLG 0 (0-99); LIPEMIA HEMOLYSIS FLAG 90 (0-99); MEAN CELL HEMOGLOBIN 31.7 pg (27.9-34.1); MEAN CELL HEMOGLOBIN CONCENTR. 33.8 g/dL (32.4-36.7); MEAN CELL VOLUME 93.9 fL (81.5-99.8); MEAN PLATELET VOLUME 9.6 fL (8.7-11.7); PLATELET CLUMPS FLAG 20 (0-99); PLATELET COUNT 159 10^3/uL (150-400); RED BLOOD CELL COUNT 4.23 10^6/uL (4.40-6.38); RED CELL DISTRIBUTION WIDTH 12.2 % (11.5-15.2)
[2017-03-05 05:40] LABS: ALANINE AMINOTRANSFERASE 807 IU/L (21-72); ALBUMIN 2.8 g/dL (3.5-5.0); ALKALINE PHOSPHATASE 46 IU/L (38-126); ANION GAP 3 mEq/L (8-16); BILIRUBIN,TOTAL 0.7 mg/dL (0.1-1.4); CALCIUM 8.2 mg/dL (8.5-10.4); CARBON DIOXIDE 25 mEq/l (22-31); CHLORIDE 107 mEq/L (97-110); GLOMERULAR FILTRATION RATE > 60; GLUCOSE 81 mg/dL (70-100); INR 1.9 (0.83-1.16); POTASSIUM 4.6 mEq/L (3.5-5.2); PROTIME(PATIENT) 21.9 SEC (12.0-15.0); SODIUM 135 mEq/L (134-144); TOTAL PROTEIN 4.8 g/dL (6.3-8.2)
[2017-03-05 05:41] LABS: APTT 32.1 SEC (23.0-38.0)
[2017-03-05 05:48] LABS: ASPARTATE AMINOTRANSFERASE 1309 IU/L (17-59)
[2017-03-05 05:50] LABS: TROPONIN I 0.428 ng/mL (0-0.034)
[2017-03-05] MEDS: ENOXAPARIN 40 MG/0.4 ML SYR SC SCH (08:05)
--- NOTE | 2017-03-05 08:48 | CPEKG ---
Heart Rate: 71 RR Interval: 845 P-R Interval: 124 QRSD Interval: 84 QT Interval: 392 QTC Interval: 426 P [place]: 81 QRS [place]: 94 T Wave [place]: 79 EKG Severity - ABNORMAL ECG - EKG Impression: SINUS RHYTHM EKG Impression: BORDERLINE RIGHT AXIS DEVIATION EKG Impression: NONSPECIFIC T ABNORMALITIES, ANT-LAT LEADS Electronically Signed By: uSe Mckeon 05-Mar-2017 11:52:25
--- NOTE | 2017-03-05 11:10 | ECHO ---
[id number] + + [address] : : [place] [address] : : [phone] + + Adult Echocardiographic Report + -----+ :Name: Rolando CRUZ Date: 03/04/2017 07:48 PM : : Hospital Admission Number: [id number] [facility] n: ER: :: 1985 Gender: Male Height: 72 in : :Age: 31 yrs Race: WH Weight: 160 lb : :Reason For Study: Elevated troponin : : BSA: 1.9 meters 2 : + -----+ MMode/2D Measurements \T\ Calculations IVSd: 0.67 cm LVIDd: 4.7 cm FS: 14.6 % Ao root diam: 3.0 cm LVPWd: 0.92 cm LVIDs: 4.0 cm EDV(Teich): 103.4 ml LA dimension: 2.6 cm ESV(Teich): 71.3 ml EF(Teich): 31.1 % Normal Measurement Values: + + :LVIDd (3.5-5.7cm) IVSd (0.6-1.1cm) LVPWd (0.6-1.1cm) Aortic Root (2.0-3.7cm)Left Atrium (1.5-4.0cm): :LV Vol(d) (76-115ml) LV Vol(s) (29-48ml) Ejec Fraction (50-65%)PV Geoffrey (0.6- 1.2m/s) TV Geoffrey (0.4-1.0m/s) : :MV E Geoffrey (0.8-1.0m/s)MV A Geoffrey (0.3-1.0m/s)LVOT Geoffrey (0.7-1.2m/s) Asc Ao Geoffrey ( 0.9-1.8m/s) : + + Doppler Measurements \T\ Calculations MV E max geoffrey: 47.9 cm/sec Ao V2 max: 78.7 cm/sec TR max geoffrey: 182.0 cm/sec MV A max geoffrey: 32.6 cm/sec Ao max P.5 mmHg TR max P.2 mmHg MV E/A: 1.5 RAP systole: 5.0 mmHg RVSP(TR): 18.2 mmHg Left Ventricle The left ventricle is normal in size. Left ventricular systolic function is severely reduced. Ejection Fraction = 25 to 30%.%. LV septal wall appears dyskinetic. Right Ventricle The right ventricle is mildly dilated. The right ventricular systolic function is moderate to severely reduced. Atria The left atrial size is normal. Right atrial size is normal. Mitral Valve The mitral valve is normal. There is no mitral valve stenosis. There is mild to moderate mitral regurgitation. Tricuspid Valve Normal tricuspid valve. There is mild tricuspid regurgitation. Right ventricular systolic pressure is normal. Aortic Valve The aortic valve opens well. There is no aortic stenosis. There is no aortic insufficiency. Pulmonic Valve The pulmonic valve is normal in structure and function. Great Vessels The aortic root is normal size. Pericardium/Pleural There is no pericardial effusion. Conclusion A complete two-dimensional transthoracic echocardiogram was performed (2D, M-mode, Doppler and color flow Doppler). The left ventricle is normal in size. Left ventricular systolic function is severely reduced. Ejection Fraction = 25 to 30%. LV septal wall appears dyskinetic. The right ventricle is mildly dilated. The right ventricular systolic function is moderate to severely reduced. Normal appearing valvular structures. There is mild to moderate mitral regurgitation. There is mild tricuspid regurgitation. Right ventricular systolic pressure is normal. Final Reading Physician: Judi Blankenship signed on 03/05/2017 11:09 AM Ordering Physician: SHRADDHA NOVAK Performed By: Jeri Monique, [facility]
[2017-03-05 11:43] LABS: TROPONIN I 0.196 ng/mL (0-0.034)
[2017-03-05 11:45] LABS: CREATINE KINASE-MB FRACTION 5.15 ng/mL (0-3.19)
[2017-03-05 11:54] LABS: CK-MB INTERPRETATION NEGATIVE (NEGATIVE)
--- NOTE | 2017-03-05 14:57 | HOSPPROG ---
Hospitalist Progress Note Assessment/Plan: * Shock - suspect drug effect * Systolic CHF - EF 25% by ECHO -suspect stunning due to drug effect -recheck limited ECHO in am for improvement -start low dose ACEI * EKG changes with troponin elevation -cardiac cath negative -? pericarditis * Shock liver - follow LFT * Possible seizure -d/w Dr. Shipley - suspect hypoperfusion due to shock rather that seizure -no driving for 90 days * Metabolic/toxic encephalopathy -improving * Oxycontin abuse -advised against -suspect laced with additional substance * Tobacco dependence -patch Subjective: no complaints. Objective: Vital Signs Temp Pulse Resp BP Pulse Ox 36.9 C 73 13 109/75 95 03/05/17 12:00 03/05/17 12:00 03/05/17 12:00 03/05/17 12:00 03/05/17 12:00 Microbiology 03/05/17 05:00 Respiratory Panel (PCR) - Final Nasal, Sinus - [place] Viral Transport No Organism Detected Laboratory Results 03/05/17 05:15 03/05/17 05:15 03/04/17 03/05/17 03/06/17 05:59 05:59 05:59 Output Total 600 Balance -600 PT 21.9 SEC (12.0-15.0) H 03/05/17 05:15 INR 1.90 (0.83-1.16) H 03/05/17 05:15 d/w DR. Gruber - ICU rounds - all sound c/w drug effect ECHO - EF 25% EKG viewed, my personal interpretation is - evolving ST changes, somewhat diffuse - Physical Exam Constitutional: no apparent distress, appears nourished, not in pain Cardiovascular: regular rate and rhythym, no murmur, rub, or gallop Respiratory: no respiratory distress, no rales or rhonchi, clear to auscultation Gastrointestinal: normoactive bowel sounds, soft, non-tender abdomen, no palpable masses Skin: no rashes or abrasions, no fluctuance, no induration Neurologic: AAOx3, sensation intact bilaterally Psychiatric: interacting appropriately, not anxious, not encephalopathic, thought process linear ICD10 Worksheet Patient Problems: Problems Problem Status Onset Acute kidney injury Acute Drug overdose Acute Hypotension Acute Seizure Acute
--- NOTE | 2017-03-05 17:24 | PDCARPN ---
Cardiology Progress Note Assessment/Plan: Nonischemic Cardiomyopathy- LVEF 25-30%; has abnormal septal motion similar to what he would be seen with a LBBB or paced rhythm neither of which apply in this case; angiographically normal coronary arteries on catheterization; given the presenting clinical scenario, the most likely etiology for his cardiomyopathy is abuse of alcohol and/or illicit substances both of which he denies. Agree with initiation of MAO inhibitor. Does not appear to require diuresis at this time. Blood pressure may not support in addition of beta avery. Limited echo ordered for tomorrow. If his EF remains low, he will need standard medical therapy and a repeat assessment of his LV function in 90 days. Troponin Elevation- suspect this is probably secondary to subendocardial ischemia in the setting of hypotension; doubt acute myocarditis. Hypotension- drug induced; initially required pressor support with levophed which has now been discontinued. Abnormal ECG- demonstrates early repolarization but no changes consistent with ischemia or pericarditis; his thin body habitus and vertically oriented heart on chest x-ray likely explain his minimal right axis deviation. Substance Abuse- clearly a significant problem which will be addressed 03/05/17 17:20 Subjective: No complaints. Objective: Vital Signs (8 Hrs) Temp Pulse Resp BP Pulse Ox 03/05/17 16:00 82 14 115/78 96 03/05/17 14:00 68 14 120/87 H 98 03/05/17 12:00 36.9 C 73 13 109/75 95 03/05/17 11:00 76 18 122/71 H 93 03/05/17 10:00 70 13 107/58 L 96 Intake/Output (24 Hrs) 03/04/17 03/05/17 03/06/17 05:59 05:59 05:59 Intake Total 583 Output Total 600 Balance -600 583 Intake: Oral (ml) 500 IV Intake (ml) 50 IV Infused (ml) 33 Norepinephrine/Ns 500 ml 33 @ Per Protocol IV CONT CHETNA Rx#:[id number] Output: Urine (ml) 600 Urinal 600 Other: Number of Voids Urinal 1 1 Result Diagrams: 03/05/17 05:15 03/05/17 05:15 Cardiac Labs: Cardiac Lab Results (72 Hrs) 03/05/17 03/05/17 11:15 05:15 CK-MB (CK-2) Fraction 5.15 H Troponin I 0.196 H 0.428 H - Physical Exam Constitutional: no apparent distress Eyes: anicteric sclera Ears, Nose, Mouth, Throat: moist mucous membranes Cardiovascular: regular rate and rhythm, no murmurs, no rubs, no gallops Respiratory: clear to auscultate bilat Gastrointestinal: normoactive bowel sounds, no tenderness, no masses Skin: no rashes, no edema Neurologic: AAOx3 Psychiatric: flat affect ICD10 Worksheet Patient Problems: Problems Problem Status Onset Acute kidney injury Acute Drug overdose Acute Hypotension Acute Seizure Acute
--- NOTE | 2017-03-05 18:47 | GCON ---
[f rep st] CONSULTATION NEUROLOGY CONSULTATION REFERRING PHYSICIAN: Mari Winn MD CHIEF COMPLAINT: Episode of loss of consciousness. BILLING INFORMATION: Fifty minutes total floor time on the ICU reviewing this patient's extensive testing he has had since yesterday evening, coordinating care with other referring providers, and in direct patient counseling regarding differential diagnosis and treatment plan with him. 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 He smokes marijuana and snorts OxyContin, he states, twice a month. Yesterday, he had snorted OxyContin that he had gotten from a friend, and 30 minutes later started feeling poorly and went unresponsive. He states he is "90% sure" that the OxyContin was pure and did not have any other contaminants or other drugs, but is not certain. He came to the emergency department in a state of multiorgan shock and unresponsive. His girlfriend, when he lost consciousness, thought there were some jerking movements with the loss of consciousness. However, there was no tongue biting, no incontinence, or no history of seizures in this patient. It occurred 30 minutes after snorting the opiate, as noted above. In addition, the patient was found to be hypotensive when he came in with a mean arterial pressure of 50, needing significant fluid resuscitation with significant ECG abnormalities, such that he needed a stat echo, Cardiology consult, and ultimately got a cardiac catheterization by Dr. Machuca last night. The catheterization showed normal coronary arteries. His echocardiogram showed an EF of 25% to 30%, with some dyskinesis. His most recent ECG done this morning now shows some sinus rhythm. He had a CTA of the chest/thorax to rule out pulmonary embolism, which was negative last night. In terms of laboratories, he had a white count initially of 24, coming down to 12. He had other electrolyte abnormalities and AST of 724, trending up to 1309, ALT at 505, trending up to 807. CK-MB and troponin were elevated. The patient had a head CT done in the emergency department, which was entirely normal. He was admitted to the ICU for all of these organ problems and stabilized overnight. He has had no further events and is now lucid and doing well. For past medical history, social history, family history, allergies, home medications, please see Dr. Winn's history and physical. REVIEW OF SYSTEMS: A 10-point review of systems was only pertinent to the HPI. He has no epilepsy risk factors or history of neurologic problems. PHYSICAL EXAMINATION: VITAL SIGNS: Currently, blood pressure is 120/87, he is afebrile at 36.9, respirations 13, satting at 98%. HIGHER MENTAL FUNCTION: He is awake and alert. There is no aphasia. He is lucid. CRANIAL NERVE EXAM: Normal 2 through 7 and 12. MOTOR EXAM: The patient has normal strength, tone, and reflexes throughout. SENSORY EXAM: Normal to light touch in all 4 extremities. COORDINATION: Normal coordination of upper and lower extremities. IMPRESSION AND PLAN: 1. Loss of consciousness, resolved. The overall clinical history and pattern of lab and other testing abnormalities suggest the patient had a hypotensive/hypovolemic-type shock (secondary to acute drug use) with multiorgan effects, including loss of consciousness and probable convulsive syncope. I do not think he had a primary epileptic seizure as the inciting cause of all these abnormalities. He was counseled as such. In any case, I have placed him on 90 days of driving restrictions and seizure precautions. I will see him as an outpatient to follow up on his episode of loss of consciousness with an EEG. However, no further recommendations now. The plan was discussed with Dr. Eckert. We will sign off and continue to follow as needed. Please do not hesitate to call if there are any questions about this very pleasant patient or changes in neurologic status. /[id number]/MODL MTDD
[2017-03-06 05:24] LABS: % IMMATURE GRANULYOCYTES 0.4 % (0.0-1.1); ABSOLUTE IMMATURE GRANULOCYTES 0.04 10^3/uL (0.00-0.10); ADD DIFF? NO; ADD MORPH? NO; ADD SCAN? NO; ATYPICAL LYMPHOCYTE FLAG 0 (0-99); FRAGMENT RBC FLAG 0 (0-99); HEMATOCRIT 36.6 % (40.0-51.0); HEMOGLOBIN 12.8 g/dL (13.7-17.5); LEFT SHIFT FLG 0 (0-99); LIPEMIA HEMOLYSIS FLAG 90 (0-99); MEAN CELL HEMOGLOBIN 31.9 pg (27.9-34.1); MEAN CELL VOLUME 91.3 fL (81.5-99.8); PLATELET CLUMPS FLAG 0 (0-99); PLATELET COUNT 132 10^3/uL (150-400); RED BLOOD CELL COUNT 4.01 10^6/uL (4.40-6.38); RED CELL DISTRIBUTION WIDTH 11.8 % (11.5-15.2)
[2017-03-06 05:32] LABS: INR 1.72 (0.83-1.16); PROTIME(PATIENT) 20.2 SEC (12.0-15.0)
[2017-03-06 05:53] LABS: ALANINE AMINOTRANSFERASE 755 IU/L (21-72); ALKALINE PHOSPHATASE 49 IU/L (38-126); ANION GAP 6 mEq/L (8-16); ASPARTATE AMINOTRANSFERASE 679 IU/L (17-59); BILIRUBIN-CONJUGATED 0.5 mg/dL (0.0-0.5); BILIRUBIN-UNCONJUGATED 0.5 mg/dL (0.0-1.1); CALCIUM 8.6 mg/dL (8.5-10.4); CARBON DIOXIDE 25 mEq/l (22-31); CHLORIDE 108 mEq/L (97-110); CREATININE 0.9 mg/dL (0.7-1.3); GLOMERULAR FILTRATION RATE > 60; GLUCOSE 72 mg/dL (70-100); POTASSIUM 3.9 mEq/L (3.5-5.2); SODIUM 139 mEq/L (134-144); TOTAL PROTEIN 5.1 g/dL (6.3-8.2)
[2017-03-06 06:10] LABS: CK-MB INTERPRETATION NEGATIVE (NEGATIVE); CREATINE KINASE-MB FRACTION 1.88 ng/mL (0-3.19)
[2017-03-06 06:31] VITALS: RESP 16
[2017-03-06] MEDS: NICOTINE 14 MG/24 HR PATCH TD SCH (08:12)
[2017-03-06] MEDS: ENOXAPARIN 40 MG/0.4 ML SYR SC SCH (08:13)
[2017-03-06] MEDS ORDERED: LISINOPRIL 2.5 MG TAB PO SCH (09:00)
[2017-03-06] MEDS ORDERED: PANTOPRAZOLE SODIUM 40 MG TAB PO SCH (09:00)
[2017-03-06 10:07] VITALS: BP 114/74; PULSE 44
[2017-03-06 10:45] VITALS: TEMP 98.8; O2SAT 94
--- NOTE | 2017-03-06 11:03 | PDCARPN ---
Cardiology Progress Note Chief Complaint: acute CM related to substance abuse/Oxycontin Assessment/Plan: Assessment: 31 y/o M PMH tobacco, weekly Oxycontin snorting, admitted with LOC/seizure-like activity. Pt new to me. Chart reviewed. ECG personally interpreted. #. Shock.hypotension: likely drug effect off pressor and BP wnl #. NICM/SCHF - EF 25% by echo with normalization on today's ltd echo to 50-55% started low-dose Lisinopril suspect BP and HR will not tolerate addition of BB will need outpatient followup #. troponin elevation cardiac cath negative likely 2/2 hypotension #. Oxycontin abuse pt counseled to refrain from future use Plan: Pt may follow up with Dr. Tai for heart failure followup. Appointment made. 03/06/17 10:58 Subjective: Pt denies any dyspnea, palpitations currently. Objective: Vital Signs (8 Hrs) Temp Pulse Resp BP Pulse Ox 03/06/17 10:05 44 L 114/74 03/06/17 08:14 112/74 03/06/17 08:00 98.8 F 71 16 122/87 H 94 03/06/17 07:32 54 L 03/06/17 04:00 98.6 F 67 16 112/74 92 Intake/Output (24 Hrs) 03/05/17 03/06/17 03/07/17 05:59 05:59 05:59 Intake Total 983 Output Total 600 Balance -600 983 Intake: Oral (ml) 900 IV Intake (ml) 50 IV Infused (ml) 33 Norepinephrine/Ns 500 ml 33 @ Per Protocol IV CONT CHETNA Rx#:[id number] Output: Urine (ml) 600 Urinal 600 Other: Number of Voids Toilet 1 Urinal 1 1 Result Diagrams: 03/06/17 04:10 03/06/17 04:10 Cardiac Labs: Cardiac Lab Results (72 Hrs) 03/06/17 03/05/17 03/05/17 04:10 11:15 05:15 CK-MB (CK-2) Fraction 1.88 5.15 H Troponin I 0.196 H 0.428 H - Physical Exam Constitutional: no apparent distress Eyes: anicteric sclera Cardiovascular: regular rate and rhythm, no murmurs Respiratory: clear to auscultate bilat, no crackles Skin: no edema Psychiatric: cooperative ICD10 Worksheet Patient Problems: Problems Problem Status Onset Acute kidney injury Acute Drug overdose Acute Hypotension Acute Seizure Acute
--- NOTE | 2017-03-06 11:39 | ECHO ---
[id number] + + [address] : : [place] [address] : : [phone] + + Adult Echocardiographic Report + ------+ :Name: Rolando CRUZ Date: 03/06/2017 08:40 AM BP: 122/87 mmHg : : Hospital Admission Number: [id number] n: 210: :: 1985 Gender: Male Height: 72 in : :Age: 31 yrs Race: WH Weight: 156 lb : :Reason For Study: reasesses LV EF : : BSA: 1.9 meters 2 : :History: low EF : + ------+ MMode/2D Measurements \T\ Calculations IVSd: 0.79 cm LVIDd: 5.4 cm FS: 27.2 % LVLd ap4: 9.2 cm LVPWd: 0.99 cm LVIDs: 3.9 cm EDV(Teich): 139.0 mlEDV(MOD-sp4): 143.0 ml ESV(Teich): 66.0 ml LVLs ap4: 7.7 cm EF(Teich): 52.5 % ESV(MOD-sp4): 65.0 ml EF(MOD-sp4): 54.5 % SV(MOD-sp4): 78.0 ml Normal Measurement Values: + + :LVIDd (3.5-5.7cm) IVSd (0.6-1.1cm) LVPWd (0.6-1.1cm) Aortic Root (2.0-3.7cm)Left Atrium (1.5-4.0cm): :LV Vol(d) (76-115ml) LV Vol(s) (29-48ml) Ejec Fraction (50-65%)PV Geoffrey (0.6- 1.2m/s) TV Geoffrey (0.4-1.0m/s) : :MV E Geoffrey (0.8-1.0m/s)MV A Geoffrey (0.3-1.0m/s)LVOT Geoffrey (0.7-1.2m/s) Asc Ao Geoffrey ( 0.9-1.8m/s) : + + Doppler Measurements \T\ Calculations TR max geoffrey: 267.4 cm/sec TR max P.6 mmHg RAP systole: 15.0 mmHg RVSP(TR): 43.6 mmHg Left Ventricle The left ventricle is borderline dilated. There is normal left ventricular wall thickness. Left ventricular systolic function is low normal. Ejection Fraction = 50-55%. No regional wall motion abnormalities noted. Conclusion Limited echocardiogram to reassess the left ventricular ejection fraction. The left ventricle is borderline dilated. Left ventricular systolic function is low normal. Ejection Fraction = 50-55%. Left ventricular ejection has improved from 31% 03/04/17 to 50-55% on todays echocardiogram. Final Reading Physician: Judi Calixto signed on 03/06/2017 11:38 AM Ordering Physician: Sarah Eckert Performed By: Wilma Parekh
--- NOTE | 2017-03-06 18:36 | GDS ---
[f rep st] DISCHARGE SUMMARY DISCHARGE DIAGNOSES: 1. Cardiogenic shock, suspect drug effect. 2. Systolic congestive heart failure. Ejection fraction 25%. 3. Electrocardiogram changes and positive troponin, negative cardiac catheterization. 4. Shock liver. 5. Possible seizure, suspected more to be cerebral hypoperfusion. 6. Metabolic/toxic encephalopathy. 7. OxyContin abuse. 8. Tobacco dependence. HISTORY: The patient is a 31-year-old male who started having seizure-like activity shortly after s norting OxyContin. His girlfriend called 911. He was very unstable upon arrival to the emergency r oom, hypotensive, with ST-elevation changes on his EKG, with positive troponin. He was brought ghislaine gently to the cardiac catheterization lab, and it was negative. CT angiogram of the chest was negat edis for PE. Echocardiogram showed an EF of only 25%. He developed significant shock liver. Harleen valentino saw him, and felt the seizure-like activity was probably cerebral hypoperfusion due to his shock . Overall, his situation is most consistent with a drug effect. We suspect his OxyContin may have been laced with something else. He was advised strongly against further drug abuse. He rapidly sta bilized once this substance was out of his system. Repeat echocardiogram prior to discharge showed normalization of his ejection fraction. Cardiology would like to see him in followup. We are start ing him on a low-dose MAO inhibitor. He was advised strongly against future substance abuse. Given his possible seizure-like activity, he was recommended no driving for 90 days, and he should follow up with Neurology at least one time to clear him for future driving. DISCHARGE MEDICATIONS: Please see computerized record for full detailed list. New medications: Lisinopril 2.5 mg p.o. daily. ADDITIONAL DISCHARGE INSTRUCTIONS: 1. No driving for 90 days. 2. Repeat LFTs and INR as an outpatient to ensure normalization. 3. No more OxyContin. 4. Followup appointment made with Dr. Huang Tai of Cardiology on March 22 at 9:45 a.m. 5. Follow up with Dr. Lamont Shipley prior to reinitiating driving. Greater 30 minutes' time was spent arranging this discharge. Patient seen and examined by me on the day of discharge. /[id number]/MODL
[2017-03-08 18:06] LABS: EDDP <10.0 ng/mL; METHADONE <10.0 ng/mL
== END 2017-03-06 12:39 | disposition home or self-care (01) | DRG 286 ==
LOC: F2N 22:23 → OBSVTOIN 23:07 → F2W 03-05 17:29
PROVIDERS: ADMIT Internal Medicine; ATTEND Internal Medicine
DX: R57.0 Cardiogenic shock (principal); G92 Toxic encephalopathy; T40.2X1A Poisoning by other opioids, accidental (unintentional), initial encounter; I42.9 Cardiomyopathy, unspecified; I50.20 Unspecified systolic (congestive) heart failure; I95.9 Hypotension, unspecified; N17.9 Acute kidney failure, unspecified; F17.210 Nicotine dependence, cigarettes, uncomplicated; F11.10 Opioid abuse, uncomplicated
CPT/HCPCS: 80305; 80307; 97161-GP; 97165-GO; G0472; G0480; J1265; J1644; J1650; J2060; J2250; J2405; J3010; Q9967